=== PATIENT | male | born 1985 | race Asian ===

== ENCOUNTER 2024-07-28 10:53 | Outpatient (REF) | payer MEDICAID, SELFPAY ==
[2024-07-28 16:46] LABS: Urine Cytology See Pathology rpt
== END 2024-07-28 10:54 | disposition home or self-care (01) ==
LOC: HO.LNP 10:53
PROVIDERS: PCP Internal Medicine; Visit Provider Nurse Practitioner Family
DX: R31.29 Other microscopic hematuria (principal); F17.200 Nicotine dependence, unspecified, uncomplicated; Z72.89 Other problems related to lifestyle; R35.1 Nocturia; R10.9 Unspecified abdominal pain; N20.0 Calculus of kidney
CPT/HCPCS: 81003; 88112; 99212

== ENCOUNTER 2024-07-28 10:53 | Outpatient (AMB) | payer MEDICAID, SELFPAY ==
--- NOTE | 2024-07-28 10:52 | A.OFFVIS_ITS ---
Intake Visit Reasons: Microscopic Hematuria Intake Note: New Patient is present for micro hematuria Urology Rx:none Blood Thinners: Furniture Removalist Required: No Furniture Removalist Services: Furniture Removalist Offered & Declined Furniture Removalist Name: daughter will translate Accompanied by: Child Allergies No Known Allergies Allergy (Verified 07/28/24 11:40) Medication List - Last Reconciled 07/28/24 by ALLYSON Felder atorvastatin 10 mg PO DAILY baclofen 10 - 20 mg PO DAILY PRN ergocalciferol (vitamin D2) PO gabapentin 300 mg PO BID levothyroxine 125 mcg PO QAM metformin 500 mg PO QAM metoprolol succinate ER 100 mg PO DAILY omeprazole 20 mg PO QAM sertraline 100 mg PO DAILY topiramate 50 mg PO DAILY PRN HPI Comments Details: Good is a pleasant 38-year-old Indonesian speaking male patient of Dr. Hurt who was accompanied by his daughter at today's office visit. He is requesting translation be provided by his daughter. He has a past medical history of hypercholesteremia, GERD, prediabetes, hypothyroidism, vitamin-D deficiency, headaches, gastritis, H pylori, and hypertension. He presents to the office today as a new patient for microscopic hematuria. In discussion with the patient today reports having followed up with his PCP at which time he was noted to have microscopic hematuria and recommendations were made for urology referral for further assessment evaluation. He does report a longstanding history of nicotine dependence over the last 15-17 years of smoking 1 pack of cigarettes per day however most recently over the last 18 months has switch to vaping. He also reports noting a history of nephrolithiasis 3 years ago and believes he had passage of stone within the last 3 months as he had been experiencing left-sided flank pain and believed he has since passed a kidney stone. In office urinalysis results reviewed with the patient today no microscopic hematuria noted. He denies any previous surgical intervention for nephrolithiasis. He currently denies any bothersome urinary issues. He does report episodes of nocturia up to 2 times per night however this is infrequent. He denies urinary urgency, urinary frequency, incontinence, hematuria, dysuria, foul smelling urine, changes to urinary stream, flank pain, fever, and or chills. He is happy with his current voiding parameters. We did discussed potential causes of microscopic hematuria, nocturia, flank pain, and nephrolithiasis. We discussed obtaining CT urogram for further assessment evaluation. All questions were answered he otherwise offers no other issues or concerns at this time [facility] Medical History Elevated LDL cholesterol level Terminal ileitis without complication Acute midline low back pain without sciatica Gastroesophageal reflux disease without esophagitis Chronic low back pain Prediabetes Hypothyroidism Muscle weakness of extremity White matter abnormality on MRI of brain Ascending aortic aneurysm Vitamin D deficiency Chronic headache Helicobacter pylori (H. pylori) infection Gastritis Hypertension Review of Systems Const All systems reviewed & are unremarkable except as noted in HPI and below Physical Exam Const General: cooperative, healthy appearing, comfortable, no acute distress, well developed, alert and awake Nutritional Appearance: underweight Orientation/consciousness: patient oriented x3 Limitations: language barrier HEENT Head: Yes normal to inspection, Yes normocephalic and Yes atraumatic Ears: hearing grossly normal bilaterally Eyes General: appearance normal, both eyes and all related structures Neck Neck: Yes normal visual inspection and Yes trachea midline Chest Chest palpation & inspection: normal inspection of the chest Resp Effort & Inspection: normal respiratory effort and able to speak in complete sentences Cardio Rate: regular rate GI Inspection: Yes normal to inspection General: Yes no CVA tenderness Back/Spine/Pelvis Back: no CVA tenderness Skin General skin exam: no rashes or lesions noted Neuro General: patient oriented x3 Extrem General: Yes normal to inspection Psych Appearance: grossly normal and well kempt Mental Status: mental status grossly normal Speech and movement: Normal speech and movement present and Clear speech present Affect: normal affect Attitude: cooperative Thought process: Normal thought process present Thought content: Normal thought content present Insight: Fair insight present (Psych) Judgement: Fair judgement present (Psych) Results AMB Urinalysis, Automated UA Leukoctes 0 [place]/uL Last Edit by Isabella Hawkins MA on 07/28/24 11:10 UA Nitrite Last Edit by Isabella Hawkins MA on 07/28/24 11:10 UA Urobilinogen 0.5 mg/dL Last Edit by Isabella Hawkins MA on 07/28/24 11:10 UA Protein 15 mg/dL Last Edit by Isabella Hawkins MA on 07/28/24 11:10 UA pH 6.0 Last Edit by Isabella Hawkins MA on 07/28/24 11:10 UA Blood 0 [place]/uL Last Edit by Isabella HawkinsJEN on 07/28/24 11:10 UA Specific [place] 1.025 Last Edit by Isabella Hawkins JEN on 07/28/24 11:10 UA Ketone Negative Last Edit by Isabella Hawkins JEN on 07/28/24 11:10 UA Bilirubin 1 mg/dL Last Edit by Isabella HawkinsJEN on 07/28/24 11:10 UA Glucose 0 mg/dL Last Edit by Isabella HawkinsJEN on 07/28/24 11:10 Results Reviewed Results Reviewed: Laboratory Last Values Urine pH (Auto) 6.0 07/28/24 11:00 Specific [place] (Auto) 1.025 07/28/24 11:00 Urine Protein (Auto) 15 mg/dL 07/28/24 11:00 Glucose (UA)(Auto) 0 mg/dL 07/28/24 11:00 Urine Ketones (Auto) Negative 07/28/24 11:00 Urine Blood (Auto) 0 [place]/uL 07/28/24 11:00 Urine Bilirubin (Auto) 1 mg/dL 07/28/24 11:00 Urine Urobilinogen (Auto) 0.5 mg/dL 07/28/24 11:00 Leukocyte Esterase (Auto) 0 [place]/uL 07/28/24 11:00 Assessment & Plan Assessment & Plan (1) Microscopic hematuria: Code(s): R31.29 - Other microscopic hematuria Category: Medical (2) Nicotine dependence: Code(s): F17.200 - Nicotine dependence, unspecified, uncomplicated Category: Medical (3) Current every day vaping: Code(s): Z72.89 - Other problems related to lifestyle Category: Social Hx (4) Nocturia: Code(s): R35.1 - Nocturia Category: Medical (5) Flank pain: Code(s): R10.9 - Unspecified abdominal pain Category: Medical (6) Nephrolithiasis: Code(s): N20.0 - Calculus of kidney Category: Medical Plan In office urinalysis results reviewed with the patient today; as noted above; will send for urine cytology. He currently denies any bothersome urinary issues or concerns. He reports be happy with current voiding parameters. Will obtain CT urogram for further assessment evaluation. BUN and creatinine ordered for imaging. We discussed the importance of limiting/quitting vaping for overall health and well-being. We discussed the importance of adequate hydration relation to lower urinary tract symptoms as well as nephrolithiasis. We discussed potential causes of these urological conditions as well as further treatment options and risks and benefits of these treatment options. Follow-up in 1-3 months with imaging and labs to be completed prior; or sooner with any issues, concerns, and or questions. Orders: Orders AMB Urinalysis Automated Today Z13.9 - Encounter for screening, unspecified Urine Cytology Today R31.29 - Other microscopic hematuria Blood Urea Nitrogen Today R39.15 - Urgency of urination CT urogram Today R31.0 - Gross hematuria Creatinine Today R39.15 - Urgency of urination Patient Instructions: The patient had an opportunity to ask questions regarding the treatment plan. All questions were answered. Physical exam, labs, and imaging were discussed and reviewed in detail. As well as risks, benefits, and discussion of treatment choices. No major barriers to understanding were identified. The patient expre ssed understanding and agreement with the above treatment plan. The patient was made aware they should contact our office by phone for worsening of their current condition, the appearance of new symptoms, or with any questions or concerns. Compliance is encouraged with any medications and follow up testing that is ordered. It is a privilege to be allowed the opportunity to participate in? your urological care.? Again, if you have any questions or concerns If you have any questions or concerns please do not hesitate to contact me. The office is [phone]. This note is constructed using voice recognition software. While every effort has been made to ensure accuracy briquette molder errors may have been included. Yours sincerely, ALLYSON Felder Coding Level of Care Code New Pt Level 3 (89571) Diagnoses Microscopic hematuria R31.29 Nicotine dependence F17.200 Current every day vaping Z72.89 Nocturia R35.1 Flank pain R10.9 Nephrolithiasis N20.0
--- OUTSIDE RECORDS SUMMARY | 2024-07-28 12:23 | XMS_ITS | Clinical Summary ---
Author Organization [facility] ity Address [address] [place] [address] Care Team Providers Care Oakes Machine Operator Name Role Phone Bryan Hurt MD Primary Care Provider [phone] Immunizations Name Administration Dates Next Due Moderna SARS-CoV-2 COVID-19, mRNA, LNP-S, preservative free 02/01/2021,07/05/2020,06/07/2020 Medical History Medical History Date Comments Helicobacter pylori (H. pylo ri) infection DX:Helicobacter pylori (H. p ylori) infection Chronic headache DX:Chronic head ache Vitamin D deficiency DX:Vitamin D deficiency Ascending aortic aneurysm (C MS/HCC V24) DX:Ascending aortic aneurysm (HCC) White matter abnormality on MRI of brain DX:White matter abnormality on MRI of brain Muscle weakness of extremity DX: Muscle weakness of extremity Hypothyroidism DX:Hypothyroidis m Prediabetes DX:Prediabetes Chronic low back pain DX:Chronic low back pain GERD without esophagitis DX:GERD without esophagitis Acute midline low back pain without sciatica DX:Acute midline low back pa in without sciatica Terminal ileitis without com plication (CMS/HCC V24, CMS/HCC V28) DX:Terminal ileitis without complication (HCC) RLQ abdominal pain 06/09/2021 DX:RLQ abdomi nal pain Fatty liver DX:Fatty liver Hyperlipidemia DX:Hyperlipidemi a Essential hypertension DX:Essent ial hypertension Social History Tobacco Use Types Packs/Day Years Used Date Smoking Tobacco: Every Day Smokeless Tobacco: Never Alcohol Use Standard Drinks/Week Comments Not Asked 0 (1 standard drink = 0.6 oz pur e alcohol) Sex and Gender Information Value Date Recorded Sex Assigned at Not on file Legal Sex Male 1:30 AM EST Gender Identity Not on file Sexual Orientation Not on file Obstetrics History Last Filed Vital Signs Vital Sign Reading Time Taken Comments Blood Pressure 120/70 11/07/2021 11:50 AM EDT Sitting L Arm Pulse 64 11/07/2021 11:50 AM EDT Temperature - - Respiratory Rate - - Oxygen Saturation - - Inhaled Oxygen Concentration - - Weight 90.2 kg (198 lb 12.8 oz) 11/07/2021 11:50 AM EDT Height 167.6 cm (5' 6 ) 11/07/2021 11:5 0 AM EDT Body Mass Index 32.09 11/07/2021 11:50 AM EDT Plan of Treatment Health Maintenance Due Date Last Done Comments DTaP,Tdap,and Td Vaccines (1 - Tdap) 08/12/2002 Hepatitis A Vaccines (1 of 2 - Risk 2-dose series) 08/12/2002 Hepatitis B Vaccines (1 of 3 - 19+ 3-dose series) 08/12/2002 Pneumococcal Vaccine: Pediatrics (0 to 5 Years) and At-Risk Patients (6 to 64 Years) (1 of 2 - PCV) 08/12/2002 Cholesterol Screening (Lipid Panel) 01/15/2022 Depression Screening 01/15/2022 HIV Screening 01/15/2022 Hepatitis C Screening 01/15/2022 Social Influencers of Health Screening 01/15/2022 Hypertension/CHF/CAD Annual BMP Blood Test 01/22/2022 COVID-19 Vaccine (2023-2 5 season) 2023 02/01/2021, 07/05/2020, 06/07/2020 Influenza Vaccine (Season Ended) 2024 HIB Vaccines Aged Out No longer eligi ble based on patient's age to complete this topic HPV Vaccines Aged Out No longer eligi ble based on patient's age to complete this topic IPV Vaccines Aged Out No longer eligi ble based on patient's age to complete this topic MMR Vaccines Aged Out No longer eligi ble based on patient's age to complete this topic Meningococcal ACWY Vaccine Aged Out N o longer eligible based on patient's age to complete this topic Meningococcal B Vaccine Aged Out No l onger eligible based on patient's age to complete this topic RSV Immunization Patients Under 20 months Aged Out No longer eligible b ased on patient's age to complete this topic Varicella Vaccines Aged Out No longer eligible based on patient's age to complete this topic Care Teams Oakes Machine Operator Relationship Specialty Start Date End Date Bryan Hurt MD [facility] [place] [address] PCP - General Internal Medicine 04/15/21
== END 2024-07-28 11:42 | disposition home or self-care (01) ==
LOC: HO.HUSH 10:54
PROVIDERS: PCP Internal Medicine; Visit Provider Nurse Practitioner Family
DX: R31.29 Other microscopic hematuria (principal); F17.200 Nicotine dependence, unspecified, uncomplicated; Z72.89 Other problems related to lifestyle; R35.1 Nocturia; R10.9 Unspecified abdominal pain; N20.0 Calculus of kidney; Z13.9 Encounter for screening, unspecified
CPT/HCPCS: 99203